=== PATIENT | female | born 1960 | race Caucasian/White ===

== ENCOUNTER → 2016-07-05 | Outpatient (CLI) | payer BC ==
--- NOTE | 2016-07-06 12:16 | MM ---
Reason for exam: screening (asymptomatic). Last mammogram was performed 1 year and 4 months ago. History: Patient is postmenopausal. Family history of breast cancer in aunt at age 52. Physical Findings: A clinical breast exam by your physician is recommended on an annual basis and results should be correlated with mammographic findings. MG Screening Mammo w CAD Bilateral CC, MLO, and XCCL view(s) were taken. Prior study comparison: February 20, 2015, bilateral MG screening mammo w CAD. March 22, 2013, bilateral digital screening mammo w/CAD. There are scattered fibroglandular densities. Finding: There are new coarse heterogeneous, segmental calcifications in the left breast. New finding since February 20, 2015 and March 22, 2013. ASSESSMENT: Probably benign, BI-RAD 3 RECOMMENDATION: Follow-up diagnostic mammogram of the left breast in 6 months.
== END | disposition home or self-care (01) ==
LOC: RADMAMWWP 14:45
PROVIDERS: ATTEND Family Medicine
DX: Z12.31 Encounter for screening mammogram for malignant neoplasm of breast (principal)

== ENCOUNTER → 2017-01-09 | Outpatient (CLI) | payer BC ==
--- NOTE | 2017-01-09 14:25 | MM ---
Reason for exam: follow-up at short interval from prior study. Last mammogram was performed 6 months ago. History: Patient is postmenopausal. Family history of breast cancer in aunt at age 52. Physical Findings: Nurse did not find any significant physical abnormalities on exam. MG 3D Diag Mammo W/Cad LT CC and MLO view(s) were taken of the left breast. Prior study comparison: July 05, 2016, bilateral MG screening mammo w CAD. February 20, 2015, bilateral MG screening mammo w CAD. There are scattered fibroglandular densities. No suspicious calcifications. These results were verbally communicated with the patient and result sheet given to the patient on 01/09/17. ASSESSMENT: Benign, BI-RAD 2 RECOMMENDATION: Return to routine screening mammogram schedule for both breasts. Back on schedule for June 2017.
== END | disposition home or self-care (01) ==
LOC: RADMAMWWP 13:44
PROVIDERS: ATTEND Family Medicine
DX: Z12.31 Encounter for screening mammogram for malignant neoplasm of breast (principal)
CPT/HCPCS: G0206; G0279

== ENCOUNTER 2017-05-12 10:08 | Emergency (ER) | payer BC ==
[2017-05-12] MEDS ORDERED: SODIUM CHLORIDE 0.9% 1,000 ML BAG ONE (14:52)
[2017-05-13 14:46] LABS: Basophils # (A) 0.1 k/uL (0-0.2); Basophils % (A) 1 %; Eosinophils # (A) 0.3 k/uL (0-0.7); Eosinophils % (A) 3 %; HCT 44.3 % (34.0-46.0); HGB 14.8 gm/dL (11.4-16.0); Lymphocytes # (A) 2.8 k/uL (1.0-4.8); Lymphocytes % (A) 30 %; MCH 29.8 pg (25.0-35.0); MCHC 33.5 g/dL (31.0-37.0); Mean Platelet Volume 6.1; Monocytes # (A) 0.5 k/uL (0-1.0); Monocytes % (A) 6 %; Neutrophils # (A) 5.4 k/uL (1.3-7.7); Neutrophils % (A) 58 %; Platelet Count 513 k/uL (150-450); RBC 4.98 m/uL (3.80-5.40); RDW 12.5 % (11.5-15.5); WBC 9.3 k/uL (3.8-10.6)
[2017-05-13 15:28] LABS: Partial Thromboplastin Time 22.3 sec (22.0-30.0); Prothrombin Time 10.1 sec (9.0-12.0)
[2017-05-13 15:50] LABS: Erythrocyte Sedimentation Rate 40 mm/hr (0-20)
[2017-05-13 17:01] LABS: ALT 84 U/L (9-52); AST 41 U/L (14-36); Albumin 4.1 g/dL (3.5-5.0); Alkaline Phosphatase 175 U/L (38-126); Anion Gap 12 mmol/L; Blood Urea Nitrogen 12 mg/dL (7-17); Carbon Dioxide 29 mmol/L (22-30); Chloride 99 mmol/L (98-107); Glucose 120 mg/dL (74-99); Potassium 4.5 mmol/L (3.5-5.1); Sodium 140 mmol/L (137-145); T4, Free (Free Thyroxine) 1.55 ng/dL (0.78-2.19); Total Bilirubin 0.6 mg/dL (0.2-1.3)
[2017-05-13 17:10] LABS: Creatine Kinase 23 U/L (30-135); Creatine Kinase MB <0.2 ng/mL (0.0-2.4); Troponin I <0.012 ng/mL (0.000-0.034)
== END 2017-05-12 13:45 | disposition home or self-care (01) ==
LOC: EC 10:08
DX: B34.9 Viral infection, unspecified (principal); R21 Rash and other nonspecific skin eruption
CPT/HCPCS: 36415; 80053; 82550; 82553; 84439; 84443; 84484; 85025; 85610; 85652; 85730; 93005; 96360; 99283

== ENCOUNTER 2017-06-01 23:32 | Emergency (ER) | payer BC ==
[2017-06-01 23:38] VITALS: RESP 18
[2017-06-01] MEDS ORDERED: HYDROmorphone 1 MG/ML 1 ML SYRINGE IVP STA (23:56)
[2017-06-01] MEDS ORDERED: ONDANSETRON 4 MG/2 ML VIAL IVP STA (23:56)
[2017-06-01] MEDS ORDERED: SODIUM CHLORIDE 0.9% 1,000 ML IV STA (23:56)
--- NOTE | 2017-06-02 00:33 | ED ---
Abdominal Pain HPI - General Chief Complaint: Abdominal Pain Stated Complaint: R Flank Pain Time Seen by Provider: 06/01/17 23:49 Source: patient, RN notes reviewed Mode of arrival: ambulatory Limitations: no limitations - History of Present Illness Initial Comments: Patient 56-year-old female who presents emergency room today with a chief complaint of right-sided flank pain that started approximately 6 PM. She has mid to a sharp type pain that seems to be increasing. She states she's never had similar symptoms in the past. Does not that she began feeling nauseated due to the pain. Currently rates it a /10. States there is some radiation around to the front of the abdomen. Denies any other complaints or symptoms. Patient denies any recent fever, chills, shortness of breath, chest pain, numbness or tingling, dysuria or hematuria, constipation or diarrhea, headaches or visual changes, or any other complaints. - Related Data Home Medications Medication Instructions Recorded Confirmed Lisinopril-Hctz 10-12.5 mg 1 tab PO DAILY 05/13/17 06/01/17 [Zestoretic 10-12.5] Ranitidine HCl [Zantac] 300 mg PO HS 05/13/17 06/01/17 Previous Rx's Medication Instructions Recorded Ibuprofen [Motrin] 600 mg PO Q6HR PRN #40 day 06/02/17 Allergies Allergy/AdvReac Type Severity Reaction Status Date / Time No Known Allergies Allergy Unverified 06/01/17 23:33 Review of Systems ROS Statement: Those systems with pertinent positive or pertinent negative responses have been documented in the HPI. ROS Other: All systems not noted in ROS Statement are negative. Past Medical History Additional Past Medical History / Comment(s): fatty liver History of Any Multi-Drug Resistant Organisms: None Reported Past Surgical History: Section, Cholecystectomy, Hysterectomy Past Psychological History: No Psychological Hx Reported Smoking Status: Never smoker Past Alcohol Use History: None Reported Past Drug Use History: None Reported General Exam - General Exam Comments Initial Comments: General: The patient is awake and alert, in no distress, and does not appear acutely ill. Eye: Pupils are equal, round and reactive to light, extra-ocular movements are intact. No nystagmus. There is normal conjunctiva bilaterally. No signs of icterus. Ears, nose, mouth and throat: There are moist mucous membranes and no oral lesions. Neck: The neck is supple, there is no tenderness or JVD. Cardiovascular: There is a regular rate and rhythm. No murmur, rub or gallop is appreciated. Respiratory: Lungs are clear to auscultation, respirations are non-labored, breath sounds are equal. No wheezes, stridor, rales, or rhonchi. Gastrointestinal: Soft, non-distended, non-tender abdomen without masses or organomegaly noted. There is no rebound or guarding present. No CVA tenderness. Bowel sounds are unremarkable. Musculoskeletal: Normal ROM, no tenderness. Strength 5/5. Sensation intact. Pulses equal bilaterally 2+. Neurological: A&O x 3. CN II-XII intact, There are no obvious motor or sensory deficits. Coordination appears grossly intact. Speech is normal. Skin: Skin is warm and dry and no rashes or lesions are noted. Psychiatric: Cooperative, appropriate mood & affect, normal judgment. Limitations: no limitations Course Vital Signs 06/01/17 23:34 Temperature 97.0 F L Pulse Rate 76 Respiratory 18 Rate Blood Pressure 148/83 O2 Sat by Pulse 96 Oximetry Medical Decision Making - Medical Decision Making Patient reexamined at this time shows no signs of distress. She is feeling much better here in the emergency room. Patient's labs been reviewed. Her liver enzymes much improved from previous visit to the emergency room. Patient' s CT of the abdomen and pelvis is unremarkable no evidence of a kidney stone. There is some possible scarring versus a tumor mass left lung base. This was discussed with the patient and she'll be given information follow-up plant cytologist for further evaluation. Advised patient that possibly of a kidney stone that did not show up on the CT versus mostly skeletal type pain and she does state that is worse with certain movements at times. This time she is comfortable be discharged home with anti-inflammatories for pain to follow-up plant cytologist and her family doctor. Advised to return to the emergency room symptoms increase or worsen. Patient states understanding and is in agreement. - Lab Data Result diagrams: 06/02/17 00:37 06/02/17 00:37 Lab Results 06/02/17 06/02/17 06/02/17 Range/Units 00:37 00:37 00:37 WBC 9.1 (3.8-10.6) k/uL RBC 4.62 (3.80-5.40) m/uL Hgb 14.1 (11.4-16.0) gm/dL Hct 40.1 (34.0-46.0) % MCV 86.9 (80.0-100.0) fL MCH 30.4 (25.0-35.0) pg MCHC 35.0 (31.0-37.0) g/dL RDW 13.7 (11.5-15.5) % Plt Count 262 (150-450) k/uL Neutrophils % 62 % Lymphocytes % 26 % Monocytes % 6 % Eosinophils % 5 % Basophils % 1 % Neutrophils # 5.6 (1.3-7.7) k/uL Lymphocytes # 2.3 (1.0-4.8) k/uL Monocytes # 0.5 (0-1.0) k/uL Eosinophils # 0.5 (0-0.7) k/uL Basophils # 0.1 (0-0.2) k/uL Sodium 141 (137-145) mmol/L Potassium 3.6 (3.5-5.1) mmol/L Chloride 102 (98-107) mmol/L Carbon Dioxide 28 (22-30) mmol/L Anion Gap 11 mmol/L BUN 9 (7-17) mg/dL Creatinine 0.80 (0.52-1.04) mg/dL Est GFR (MDRD) Af Amer >60 (>60 ml/min/1.73 sqM) Est GFR (MDRD) Non-Af >60 (>60 ml/min/1.73 sqM) Glucose 128 H (74-99) mg/dL Calcium 9.6 (8.4-10.2) mg/dL Total Bilirubin 0.6 (0.2-1.3) mg/dL AST 32 (14-36) U/L ALT 52 (9-52) U/L Alkaline Phosphatase 114 (38-126) U/L Total Protein 7.8 (6.3-8.2) g/dL Albumin 4.1 (3.5-5.0) g/dL Amylase 43 (30-110) U/L Lipase 66 (23-300) U/L Urine Color Light Yellow Urine Appearance Clear (Clear) Urine pH 6.5 (5.0-8.0) Ur Specific [place] 1.003 (1.001-1.035) Urine Protein Negative (Negative) Urine Glucose (UA) Negative (Negative) Urine Ketones Negative (Negative) Urine Blood Negative (Negative) Urine Nitrite Negative (Negative) Urine Bilirubin Negative (Negative) Urine Urobilinogen <2.0 (<2.0) mg/dL Ur Leukocyte Esterase Small H (Negative) Urine RBC 1 (0-5) /hpf Urine WBC 5 (0-5) /hpf Ur Squamous Epith Cells 3 (0-4) /hpf Urine Bacteria Rare H (None) /hpf Urine Mucus Rare H (None) /hpf Disposition Clinical Impression: Right flank pain, Mass of left lung Disposition: HOME SELF-CARE Condition: Good Instructions: Flank Pain (ED) Additional Instructions: Please follow-up with the family doctor with her scheduled appointment and also plant cytologist to have further evaluation of appearance of the left lower long off a CT today. Please return to emergency room symptoms increase or worsen or for any other concerns. Prescriptions: Ibuprofen [Motrin] 600 mg PO Q6HR PRN #40 day PRN Reason: Pain Referrals: Gail Delaney DO [Primary Care Provider] - 1-2 days Lori Shannon MD [STAFF PHYSICIAN] - 1-2 days Time of Disposition: 02:11
[2017-06-02 00:46] LABS: Basophils # (A) 0.1 k/uL (0-0.2); Basophils % (A) 1 %; Eosinophils # (A) 0.5 k/uL (0-0.7); Eosinophils % (A) 5 %; HCT 40.1 % (34.0-46.0); HGB 14.1 gm/dL (11.4-16.0); Lymphocytes # (A) 2.3 k/uL (1.0-4.8); Lymphocytes % (A) 26 %; MCH 30.4 pg (25.0-35.0); MCV 86.9 fL (80.0-100.0); Mean Platelet Volume 6.9; Monocytes # (A) 0.5 k/uL (0-1.0); Monocytes % (A) 6 %; Neutrophils # (A) 5.6 k/uL (1.3-7.7); Neutrophils % (A) 62 %; Platelet Count 262 k/uL (150-450); RBC 4.62 m/uL (3.80-5.40); RDW 13.7 % (11.5-15.5); WBC 9.1 k/uL (3.8-10.6)
[2017-06-02 00:54] LABS: Appearance,Urine Clear (Clear); Bacteria,Urine Rare /hpf; Bilirubin,Urine Negative (Negative); Blood,Urine Negative (Negative); Color,Urine Light Yellow; Glucose,Urine (UA) Negative (Negative); Ketones,Urine Negative (Negative); Leukocyte Esterase,Urine Small (Negative); Mucus,Urine Rare /hpf; Nitrite,Urine Negative (Negative); PH, Urine 6.5 (5.0-8.0); Protein,Urine Negative (Negative); RBC,Urine 1 /hpf (0-5); Specific Gravity,Urine 1.003 (1.001-1.035); Squamous Epithelial Cell,Urine 3 /hpf (0-4); Urobilinogen,Urine <2.0 mg/dL (<2.0); WBC,Urine 5 /hpf (0-5)
--- NOTE | 2017-06-02 00:55 | XR ---
EXAMINATION TYPE: XR KUB DATE OF EXAM: 06/02/2017 COMPARISON: NONE HISTORY: Flank pain TECHNIQUE: 2 views FINDINGS: There is no sign of intestinal obstruction or pneumoperitoneum. Fecal pattern is normal. Th ere are clips from cholecystectomy. Lung bases are clear of consolidation. There are no pathologic ca lcifications over the kidneys. IMPRESSION: Nonacute abdomen.
[2017-06-02 00:56] LABS: ALT 52 U/L (9-52); AST 32 U/L (14-36); Albumin 4.1 g/dL (3.5-5.0); Alkaline Phosphatase 114 U/L (38-126); Amylase 43 U/L (30-110); Anion Gap 11 mmol/L; Blood Urea Nitrogen 9 mg/dL (7-17); Calcium 9.6 mg/dL (8.4-10.2); Carbon Dioxide 28 mmol/L (22-30); Chloride 102 mmol/L (98-107); Glucose 128 mg/dL (74-99); Lipase 66 U/L (23-300); Potassium 3.6 mmol/L (3.5-5.1); Sodium 141 mmol/L (137-145); Total Bilirubin 0.6 mg/dL (0.2-1.3); Total Protein 7.8 g/dL (6.3-8.2)
--- NOTE | 2017-06-02 01:27 | CT ---
EXAMINATION TYPE: CT abdomen pelvis wo con DATE OF EXAM: 06/02/2017 COMPARISON: NONE HISTORY: Right Flank Pain CT DLP: 2132.40 mGycm Automated exposure control for dose reduction was used. TECHNIQUE: Helical acquisition of images was performed from the lung bases through the pelvis. FINDINGS: There is some linear density at the left posterior lung base. There is bulkiness of the visualized pu lmonary dominga. There is no pleural effusion. Liver appears normal. Bile ducts are not dilated. There are clips from cholecystectomy. There is no s ign of a pancreatic mass. Spleen appears normal. There is no adrenal mass. Kidneys have normal size and contour. There is no hydronephrosis. There is no retroperitoneal adenopathy. There is no ascites. There is no evidence of a bony destructive proces s. Appendix is not seen. There is no sign of appendicitis. IMPRESSION: THERE IS SOME BULKINESS OF THE PULMONARY DOMINGA AND MORE ON THE LEFT SIDE THAT COULD RELATE TO BRONCHIA L ADENOPATHY. THERE IS SOME SCARRING OR ATELECTASIS AT THE LEFT POSTERIOR LUNG BASE. THE POSSIBILITY OF TUMOR AT THE LEFT PULMONARY HILUM CANNOT BE EXCLUDED. I DO NOT SEE A CAUSE FOR RIGHT-SIDED FLANK PAIN. NO EVIDENCE OF RENAL MASS OR OBSTRUCTION.
[2017-06-02 02:48] VITALS: BP 132/80; PULSE 69; TEMP 96.8
== END 2017-06-02 02:44 | disposition home or self-care (01) ==
LOC: EC 23:32
DX: R91.8 Other nonspecific abnormal finding of lung field (principal); R10.9 Unspecified abdominal pain; R11.0 Nausea; Z79.899 Other long term (current) drug therapy; Z90.49 Acquired absence of other specified parts of digestive tract
CPT/HCPCS: 99284; 96374; 96375; 96361 ×2; 36415; 80053; 82150; 83690; 85025; 81001; 74018; 74176; J2405; J1170

== ENCOUNTER → 2017-06-20 | Outpatient (CLI) | payer BC ==
--- NOTE | 2017-06-20 15:04 | CT ---
EXAMINATION TYPE: CT chest w con DATE OF EXAM: 06/20/2017 COMPARISON: NONE HISTORY: Abn CT of abd pelvis CT DLP: 605.3 mGycm. Automated Exposure Control for Dose Reduction was Utilized. TECHNIQUE: CT scan of the thorax is performed following with IV Contrast, patient injected with 100 mL of Omnipaque 300. FINDINGS: LUNGS: Minimal lingular subsegmental atelectasis is present. Linear pleural parenchymal scarring with in the left lung base is also seen. The lungs are grossly clear, there is no concerning parenchymal m ass or nodule identified. There is no pleural effusion or pneumothorax seen. The tracheobronchial tree is patent. MEDIASTINUM: Mediastinal adenopathy is best appreciated on coronal series 6 image 69. Enlarged nodes are seen within the right paratracheal space, pretracheal space, precarinal space, subcarinal space, and left hilum. Conglomeration the left hilar lymph nodes measures 3.8 x 1.8 cm encasing the right lo wer lobe segmental bronchus. Subcarinal lymphadenopathy measures 1.4 cm in short axis. Precarinal francisco nopathy measures 1.4 cm in short axis, right paratracheal adenopathy measures 1.2 cm in short axis. S upraclavicular region is not entirely included in the [id number]. OTHER: There is partial visualization of the thyroid gland with and enlarged heterogenous left lobe. Gallbladder is surgically absent. There is partial visualization of the colon which appears decompres sed with mild mucosal thickening of the transverse colon and hepatic flexure. IMPRESSION: 1. Mediastinal and left hilar adenopathy without pulmonary mass. Considerations are for lymphoma, joe coidosis, or metastatic adenopathy. The thyroid gland is partially visualized but there is enlargemen t and heterogeneity of the left thyroid lobe and further evaluation with thyroid ultrasound is recomm ended. 2. Transverse and right hemicolon appear decompressed with mild wall thickening possibly related to r esolving colitis with the patient's complaint of right upper quadrant pain on the recent CT.
== END | disposition home or self-care (01) ==
LOC: RADCTMAIN 14:19
PROVIDERS: ATTEND Internal Medicine
DX: R59.0 Localized enlarged lymph nodes (principal)
CPT/HCPCS: 71260; Q9967

== ENCOUNTER → 2017-07-01 | Outpatient (CLI) | payer BC ==
--- NOTE | 2017-07-03 09:45 | PE ---
EXAMINATION TYPE: PET CT fusion skull to thigh DATE OF EXAM: 07/01/2017 COMPARISON: CT chest 06/20/2017 Prior PET/CT: None HISTORY: Solitary pulmonary nodule TECHNIQUE: Following the intravenous administration of 14.096 mCi of F-18 FDG, whole body images are performed from the skull base to the midthigh. Images are reviewed on the computer in the coronal, axial, and sagittal planes. Reconstructed rotating images are created on independent workstation and reviewed on the computer. A localization and attenuation correction CT is performed in conjunction with the PET scan. DLP: 588.02 mGycm SCAN: Initial Blood glucose: 115 mg/dL Average Mediastinum SUV: 1.57 Average Liver SUV: 2.94 FINDINGS: NECK: No abnormal uptake THORAX: There is mild uptake within mediastinal lymph nodes. The pretracheal space this has an SUV va lue of 4.0, image 70. A left peribronchial lymph node measures 5.21, image 72. There are enlarged med iastinal lymph nodes. However, it is the subcentimeter lymph nodes which have abnormal uptake. Uptak e within the enlarged subcarinal lymph node is moderate at 3.3 and the enlarged pretracheal and right peribronchial lymphadenopathy is not as intense at 1.8 and 1.9. There is a left infrahilar mass with maximum SUV of 8.63 compatible with neoplasm. This extends throu gh the infrahilar region into the left lower lung field. On image 87 this has an SUV value 5. ABDOMEN: Within the portal lymph node chain there is a area of marked increased radiotracer accumulat ion measuring 11.39 suspicious for metastatic lesion. PELVIS: No abnormal uptake OSSEOUS STRUCTURES: No abnormal uptake LOCALIZATION CT: Left lobe of thyroid is prominent displacing the trachea towards the right. No suspi cious uptake within the thyroid is identified. There are enlarged mediastinal lymph nodes. The infrah ilar mass appears to be intimately involved with the left lower lobe pulmonary vascular structures. U tilizing similar measurements the current mass is estimated to measure 4.1 cm AP by 2.3 cm transverse compared to the prior 3.8 x 1.8. Coronary artery calcification is present. COMPARISON: A lung mass is less well-defined but appears slightly larger than the comparison study . IMPRESSION: 1. Abnormal uptake within the left infrahilar mass compatible with neoplasm. 2. Subtle but suspicious uptake within mediastinal lymph nodes suspicious for metastatic disease. 3. Marked abnormal uptake within a lymph node within the portal lymph node chain suspicious for metas tasis below the diaphragm.
== END | disposition home or self-care (01) ==
LOC: RADPETMAIN 12:38
PROVIDERS: ATTEND Internal Medicine
DX: R91.8 Other nonspecific abnormal finding of lung field (principal); R93.8 Abnormal findings on diagnostic imaging of other specified body structures
CPT/HCPCS: 78815; A9552

== ENCOUNTER → 2017-10-17 | Outpatient (CLI) | payer BC ==
--- NOTE | 2017-10-17 15:06 | US ---
EXAMINATION TYPE: US thyroid st tissue head/neck DATE OF EXAM: 10/17/2017 COMPARISON: CT CLINICAL HISTORY: E06.9 Thyroiditis. GLAND SIZE: Right Lobe: 4.2 x 2.1 x 1.4 cm Overall Parenchyma: homogenous Left Lobe: 5.2 x 3.3 x 3.5 cm Overall Parenchyma: heterogeneous Isthmus Thickness: 0.5 cm NODULES RIGHT: # of nodules measured on right: 1 1. 1.7 x 1.5 x 1.2cm nodule at the mid pole with well-defined margins . This nodule is taller than wide and shows intranodular vascularity. No prior LEFT: # of nodules measured on left: 1 1. 4.4 x 3.0 x 3.8cm nodule at the mid pole with well-defined margins. This nodule is wider than t all and shows intranodular vascularity. No prior ISTHMUS: # of nodules measured in the isthmus: 0 Patient has large thick neck, technically difficult study. Bilateral neck scanned, no evidence of lymphadenopathy. IMPRESSION: Solid thyroid nodules with the glandular enlargement and heterogeneity may reflect multinodular goite r. The need to biopsy should be made on a clinical basis.
== END | disposition home or self-care (01) ==
LOC: RADUSMAIN 14:14
PROVIDERS: ATTEND Family Medicine
DX: E04.2 Nontoxic multinodular goiter (principal)
CPT/HCPCS: 76536

== ENCOUNTER → 2017-10-31 | Outpatient (CLI) | payer BC | END | disposition home or self-care (01) | LOC: LABWHC1 15:26 | PROVIDERS: ATTEND Internal Medicine Endocrinology, Diabetes & Metabolism | DX: E04.2 Nontoxic multinodular goiter (principal) | CPT/HCPCS: 36415; 84439; 84443; 84445; 84480 ==

== ENCOUNTER → 2017-11-07 | Outpatient (CLI) | payer BC ==
--- NOTE | 2017-11-07 23:36 | CT ---
EXAMINATION TYPE: CT chest w con DATE OF EXAM: 11/07/2017 COMPARISON: PET/CT 07/01/2017, and CT chest 06/20/2017 HISTORY: 57-year-old female Enlarged lymph nodes TECHNIQUE: Contiguous axial scanning of the chest after the administration of 100 mL of Isovue 300. Coronal/sagittal reconstructions performed. CT DLP: 787.5mGycm. Automatic exposure control utilized for a dose reduction. FINDINGS: Partially visualized large left thyroid nodule redemonstrated measuring at least 3.7 cm craniocaudal, coronal image 60 causing rightward tracheal shift. We note the absence of any hypermetabolism on the patient's 07/01/2012 PET/CT. Findings suggest multinodular goiter. Heart normal size without pericardial effusion. Aorta normal caliber with conventional arch vessel branching anatomy. Stable precarinal lymph node at 1.4 cm. Lymph node noted to be hypermetabolic on patient's PET/CT in the right paratracheal region measures 8 mm versus 1.2 cm, previously. Left tracheobronchial angle ly mph node which was also hypermetabolic on the patient's head CT measures 7 mm versus 1 cm, previously . Abnormal left sided peribronchial soft tissue remains in the infrahilar region measuring 3.5 x 2.1 cm versus 3.8 x 1.8 cm on 06/20/2017. This area was also noted to be hypermetabolic on the PET/CT. Some strandy scarring noted in the left midlung and inferior lingula. No pleural effusion. The hypermetabolic portacaval lymph node previously measuring 1.7 cm now measures 1.4 cm. Bones: No osseous destructive process. IMPRESSION: 1. A 1.4 cm precarinal lymph node is stable. Other prominent mediastinal lymph nodes (right paratrach eal and left tracheobronchial angle lymph nodes) noted to be hypermetabolic on PET/CT are smaller, fo r example, now measuring 8 mm versus 1.2 cm, previously. 2. Left infrahilar peribronchial soft tissue also noted to have been hypermetabolic on prior PET/CT i s relatively unchanged measuring 3.5 cm. In the absence of any oncologic treatment, consider sarcoido sis or indolent fungal/mycobacterial infections. Continued follow-up as indicated. 3. The portacaval lymph node noted to be hypermetabolic on prior PET/CT is slightly smaller at 1.4 cm versus 1.7 cm, previously. 4. Partially visualized multinodular goiter. This causes rightward tracheal deviation.
== END | disposition home or self-care (01) ==
LOC: RADCTMAIN 18:44
PROVIDERS: ATTEND Internal Medicine
DX: E04.2 Nontoxic multinodular goiter (principal); R59.0 Localized enlarged lymph nodes; M79.89 Other specified soft tissue disorders; J39.8 Other specified diseases of upper respiratory tract
CPT/HCPCS: 71260; Q9967

== ENCOUNTER 2017-11-08 09:45 | Day surgery (SDC) | payer BC ==
[2017-11-06 10:42] VITALS: BMI 47.7
[2017-11-08] MEDS ORDERED: LACTATED RINGERS 1,000 ML IV ONE (10:29)
[2017-11-08] MEDS ORDERED: LIDOCAINE 1% 20 ML VIAL (10MG/ML) FOR IV START INTRADERMA ONE (10:30)
[2017-11-08] MEDS ORDERED: MIDAZOLAM 2 MG/2 ML VIAL ONE (11:24)
[2017-11-08] MEDS ORDERED: fentaNYL (PF) 50 MCG/ML 2 ML AMP ONE (11:24)
[2017-11-08] MEDS ORDERED: GLYCOPYRROLATE 0.2 MG/ML 2 ML VIAL ONE (11:24)
[2017-11-08] MEDS ORDERED: SUCCINYLCHOLINE CHLORIDE 100 MG/5 ML SYR IV ONE (11:24)
[2017-11-08] MEDS ORDERED: PROPOFOL 10 MG/ML 20 ML VIAL IV ONE (11:24)
[2017-11-08] MEDS ORDERED: LIDOCAINE 1% INJ 10MG/ML (20 ML MDV) ONE (11:24)
[2017-11-08 12:19] VITALS: TEMP 97.1
[2017-11-08 12:44] VITALS: RESP 18
--- NOTE | 2017-11-08 13:17 | XR ---
EXAMINATION TYPE: XR chest 1V portable DATE OF EXAM: 11/08/2017 COMPARISON: 08/10/2013, CT chest 11/07/2017 INDICATION: Post bronchoscopy TECHNIQUE: Single frontal view of the chest is obtained. FINDINGS: The heart size is normal. The pulmonary vasculature is normal. There is a rounded opacity within the right midlung measuring 4.7 cm. This appears new from the CT ex amination No pneumothorax is evident. IMPRESSION: 1. Right perihilar mass or infiltrate. 2. No pneumothorax post bronchoscopy.
[2017-11-08 13:32] VITALS: BP 133/82; PULSE 67
--- NOTE | 2017-11-08 14:03 | P.PCN ---
Date of Procedure: 11/08/17 Preoperative Diagnosis: Lymphadenopathy/mediastinal, rule out sarcoidosis Postoperative Diagnosis: Mediastinal lymphadenopathy, rule out sarcoidosis Procedure(s) Performed: flexible bronchoscopy Transbronchial needle aspirate of a right paratracheal lymph node Transbronchial biopsy of the right lung Bronchioloalveolar lavage of the right middle lobe Anesthesia: ISMA Surgeon: Kumar Quezada Estimated Blood Loss (ml): 0 Pathology: other Condition: stable Disposition: same day Operative Findings: This procedure was done and operating room. The patient was intubated in the usual fashion by PER ASSESSMENT NURSE. The patient was induced by Diprivan and subsequently she was intubated by #8 orotracheal tube. The patient was oxygenated adequately ventilated. After was essentially orotracheal tube and as the patient was being oxygenated and ventilated, the flexible bronchoscope was advanced with orotracheal tube with was advanced into the lower trachea. The tip of the ET tube was seen around 2 cm above the rose. A careful airway inspection was done. The visualized airways included distal trachea, bilateral mainstem bronchi, right upper lobe bronchus, right middle lobe bronchus, right lower lobe bronchus, left upper lobe bronchus, left lower lobe bronchus lungs very segments and subsegments. All of these airways were patent and within normal limits. Following this, the bronchoscope was moved to the distal trachea and utilizing a 21-gauge histology 1 needle, transbronchial needle aspirate of the right paratracheal lymph node was done and a total of 3 passes was obtained. Following that, transbronchial biopsies of the right lung was done and this involved the right middle lobe and the right lower lobe. Total of 6- 7 transbronchial biopsies were obtained without any complications and no bleeding was encountered. The patient following that had a right middle lobe was LAVAGED. THE BRONCHOSCOPE WAS WEDGED IN THE lateral SEGMENT OF THE RIGHT LOWER LOBE AND A TOTAL OF 80 ML OF FLUID WAS INFUSED AND 40 ML WAS ASPIRATED. NO BEDSIDE It IS OR BLEEDING. THE PATIENT TOLERATED THE PROCEDURE WITHOUT ANY COMPLICATIONS. BRONCHOSCOPE WAS REMOVED AND FOLLOWING THAT THE PATIENT WAS EXTUBATED AND MOVED TO RECOVERY IN STABLE CONDITION. A chest x-ray at the end of the procedure was done and it showed no evidence of any pneumothorax. The patient was discharged home to be followed up in our office for further discussions.
--- NOTE | 2017-11-08 14:14 | FL ---
Fluoroscopy INDICATION: Pain FINDINGS: Fluoroscopy time: 12 seconds. Images obtained: 1. IMPRESSIONS: 1. Documentation of fluoroscopy.
[2017-11-08 22:46] LABS: Appearance,BF Hazy; Color,BF Red; Mononuclear WBC,Body Fluid 60 %; Nucleated Cells, Body Fluid 600 /uL; Polynuclear WBC,Body Fluid 38 %; RBC, Body Fluid 25500 /uL
== END 2017-11-08 14:06 | disposition home or self-care (01) ==
LOC: ORWHC2ENDO 09:45
PROVIDERS: ATTEND Internal Medicine Critical Care Medicine
DX: R59.0 Localized enlarged lymph nodes (principal); R91.8 Other nonspecific abnormal finding of lung field; K21.9 Gastro-esophageal reflux disease without esophagitis; R05 Cough; I10 Essential (primary) hypertension; E66.01 Morbid (severe) obesity due to excess calories; Z68.42 Body mass index [BMI] 45.0-49.9, adult; Z87.01 Personal history of pneumonia (recurrent); Z79.899 Other long term (current) drug therapy
CPT/HCPCS: 87798 ×3; 87496; 87498; 87529; 88108; 88305; 89050; 88342; 87252; 87502; 87634; 88341; 87070; 87205; 87116; 87102; 87206; 71045; 31628; 31629; 31624; J2250; J2001; J3010; J0330; J2704; 87075

== ENCOUNTER → 2017-12-15 | Outpatient (CLI) | payer BC ==
[2017-12-15 15:15] LABS: T4, Free (Free Thyroxine) 0.92 ng/dL (0.78-2.19)
[2017-12-15 19:14] LABS: Thyroid Peroxidase Antibodies 37.5 U/mL (0.0-60.0)
== END | disposition home or self-care (01) ==
LOC: LABWHC1 14:07
PROVIDERS: ATTEND Internal Medicine Endocrinology, Diabetes & Metabolism
DX: R94.6 Abnormal results of thyroid function studies (principal)
CPT/HCPCS: 36415; 84439; 84443; 84480; 86376

== ENCOUNTER → 2018-04-11 | Outpatient (CLI) | payer BC ==
--- NOTE | 2018-04-11 17:20 | CT ---
EXAMINATION TYPE: CT chest w con DATE OF EXAM: 04/11/2018 COMPARISON: 11/07/2017 HISTORY: f/u nodules CT DLP: 873 mGycm, Automated exposure control for dose reduction was used. CONTRAST: Performed injected with 100 mL of Isovue 300. TECHNIQUE: Axial images were obtained at 5 mm thick sections. Reconstructed images are reviewed on [employer] computer in the coronal plane. FINDINGS: Left lobe thyroid is enlarged and heterogenous measuring 3.6 cm in transverse dimension. Th is was present previously but has enlarged over. No suspicious lung nodules or focal infiltrates are present. There is some soft tissue density adjace nt to the vascular structures infrahilar region. This currently measures 11.2 x 3.5 cm which is small er than the comparison. There is an enlarged pretracheal lymph node measuring 1.3 cm. Series 3 image 18. The ascending aorta diameter at the level of the main pulmonary artery is 3.3 cm. The main pulmonary artery diameter at the bifurcation is 2.8 cm. Mild coronary artery calcifications present. Limited CT sections are obtained through the upper abdomen. Abdomen is essentially unremarkable. IMPRESSIONS: 1. Left lobe thyroid is increasing in size from comparison. 2. Stable enlarged pretracheal lymphadenopathy. 3. Diminished size of the left infrahilar soft tissue area. 4. Continued monitoring is recommended.
== END | disposition home or self-care (01) ==
LOC: RADCTMAIN 14:49
PROVIDERS: ATTEND Internal Medicine
DX: R59.0 Localized enlarged lymph nodes (principal); E04.1 Nontoxic single thyroid nodule
CPT/HCPCS: 71260; Q9967

== ENCOUNTER → 2018-08-02 | Outpatient (CLI) | payer BC ==
[2018-08-02 18:07] LABS: T4, Free (Free Thyroxine) 1.1 ng/dL (0.80-1.80)
== END | disposition home or self-care (01) ==
LOC: LABWHC1 14:20
PROVIDERS: ATTEND Internal Medicine Endocrinology, Diabetes & Metabolism
DX: E04.2 Nontoxic multinodular goiter (principal)
CPT/HCPCS: 36415; 84439; 84443

== ENCOUNTER → 2018-10-10 | Outpatient (CLI) | payer OTHER ==
[2018-10-10 16:47] LABS: T4, Free (Free Thyroxine) 1.16 ng/dL (0.78-2.19)
--- NOTE | 2018-10-11 07:10 | US ---
EXAMINATION TYPE: US thyroid st tissue head/neck DATE OF EXAM: 10/10/2018 COMPARISON: US 2018 CLINICAL HISTORY: E03.8 Hypothyroid,. Hypothyroidism. Pt on synthroid. Hx biopsy left lobe thyroid. GLAND SIZE: Right Lobe: 5.4 x 1.9 x 1.8 cm Overall Parenchyma: Homogeneous Left Lobe: 6.0 x 3.6 x 3.4 cm Overall Parenchyma: heterogeneous Isthmus Thickness: 0.29 cm NODULES RIGHT: # of nodules measured on right: 1 1. 1.8 X 1.4 x 1.5 cm hypoechoic solid nodule at the mid pole with well-defined margins. This nodu le is wider than tall and shows intranodular vascularity. Prior size: 1.7 x 1.5 x 1.2 cm LEFT: # of nodules measured on left: 1 1. 4.5 X 3.3 x 2.7 cm heterogeneous solid nodule at the mid pole with well-defined margins. This n odule is wider than tall and shows intranodular vascularity. Prior size: 4.4 x 3.0 x 3.8 cm ISTHMUS: # of nodules measured in the isthmus: 0 IMPRESSION: Heterogenous enlarged thyroid gland with bilateral thyroid nodules, dominant on the left measuring up to 4.5 cm although stable. This is stated to be previously biopsied. Right thyroid nodules also maria dolores lar in size.
== END | disposition home or self-care (01) ==
LOC: RADUSWWP 15:44
PROVIDERS: ATTEND Internal Medicine Endocrinology, Diabetes & Metabolism
DX: E04.2 Nontoxic multinodular goiter (principal)
CPT/HCPCS: 36415; 76536; 84439; 84443

== ENCOUNTER → 2018-12-07 | Outpatient (CLI) | payer OTHER ==
[2018-12-07 18:17] LABS: T4, Free (Free Thyroxine) 1.2 ng/dL (0.80-1.80)
== END | disposition home or self-care (01) ==
LOC: LABWHC1 13:45
PROVIDERS: ATTEND Internal Medicine Endocrinology, Diabetes & Metabolism
DX: E04.2 Nontoxic multinodular goiter (principal)
CPT/HCPCS: 36415; 84439; 84443

== ENCOUNTER → 2019-01-25 | Outpatient (CLI) | payer OTHER ==
[2019-01-25 18:57] LABS: T4, Free (Free Thyroxine) 1.1 ng/dL (0.80-1.80)
== END | disposition home or self-care (01) ==
LOC: LABWHC1 14:11
PROVIDERS: ATTEND Internal Medicine Endocrinology, Diabetes & Metabolism
DX: E04.2 Nontoxic multinodular goiter (principal)
CPT/HCPCS: 36415; 84439; 84443

== ENCOUNTER → 2019-03-02 | Outpatient (CLI) | payer OTHER ==
--- NOTE | 2019-03-02 17:19 | CT ---
EXAMINATION TYPE: CT chest w con DATE OF EXAM: 03/02/2019 COMPARISON: 04/11/2018 HISTORY: Follow-up to previous abnormal exam lung pineda CT DLP: 574.90 mGycm Automated exposure control for dose reduction was used. CONTRAST: CT scan of the chest is performed with IV Contrast, patient injected with 100 mL of Isovue 300. FINDINGS: LUNGS: Subsegmental changes are seen involving the lungs. No pleural effusion or pneumothorax. No foc al pneumonia. No overt failure. MEDIASTINUM: Left hilar soft tissue lymphadenopathy is stable measuring 1.2 x 3.5 cm. Adenopathy in t he pretracheal space with a short axis measurement of 1.4 cm is stable. The ascending aorta diameter at the level of the main pulmonary artery is 3.3 cm. The main pulmonary artery diameter at the bifurc ation is 2.8 cm. Mild coronary artery calcifications present. OTHER: Bilateral thyroid nodules are seen with the largest noted on the left measuring 3.8 cm. Postc holecystectomy changes are noted. Upper atrophic changes of the vertebral column. IMPRESSION: 1. Stable mediastinal and left hilar pathologic lymphadenopathy. 2. Stable bilateral thyroid nodules. 3. Subsegmental areas of consolidation with the lungs which atelectasis is favored over pneumonitis c orrelate clinically.
== END | disposition home or self-care (01) ==
LOC: RADCTMAIN 10:52
PROVIDERS: ATTEND Internal Medicine
DX: J98.11 Atelectasis (principal); E04.1 Nontoxic single thyroid nodule; R59.0 Localized enlarged lymph nodes; J18.9 Pneumonia, unspecified organism
CPT/HCPCS: 71260; Q9967

== ENCOUNTER → 2019-12-13 | Outpatient (CLI) | payer OTHER ==
--- NOTE | 2019-12-13 18:10 | CT ---
EXAMINATION TYPE: CT chest w con DATE OF EXAM: 12/13/2019 COMPARISON: CT chest 03/02/2019 HISTORY: Follow up for hilar lymphadenopathy. CT DLP: 629 mGycm Automated exposure control for dose reduction was used. CONTRAST: CT scan of the chest is performed with IV Contrast, patient injected with 100ml mL of Isovue 300. FINDINGS: LUNGS: The lungs demonstrate bilateral atelectasis. There is no concerning parenchymal mass or nodule identified. There is no pleural effusion or pneumothorax seen. The tracheobronchial tree is patent . MEDIASTINUM: There is decrease in size of mediastinal lymph nodes. Largest precarinal lymph node delbert uring 12 mm is unchanged. There is decreased size of left hilar adenopathy, with largest node measuri ng up to 1.0 cm, previously 1.3 cm on February 2019 comparison. No cardiomegaly or pericardial effusio n. Calcified coronary artery disease. No thoracic aortic aneurysm. OTHER: Normal adrenal glands. Redemonstrated heterogenous asymmetrically enlarged left thyroid gland . IMPRESSION: 1. Mildly decreased size of mediastinal and left hilar lymphadenopathy versus 03/02/2019 CT comparis on. 2. Unchanged heterogenous nodular thyroid gland.
== END | disposition home or self-care (01) ==
LOC: RADCTMAIN 15:40
PROVIDERS: ATTEND Internal Medicine
DX: E04.2 Nontoxic multinodular goiter (principal); R59.0 Localized enlarged lymph nodes
CPT/HCPCS: 71260; Q9967

== ENCOUNTER → 2019-12-27 | Outpatient (CLI) | payer OTHER ==
[2019-12-27 18:59] LABS: T4, Free (Free Thyroxine) 1.2 ng/dL (0.80-1.80)
== END | disposition home or self-care (01) ==
LOC: LABWHC1 14:33
PROVIDERS: ATTEND Internal Medicine Endocrinology, Diabetes & Metabolism
DX: E04.2 Nontoxic multinodular goiter (principal)
CPT/HCPCS: 36415; 84439; 84443

== ENCOUNTER → 2020-01-21 | Outpatient (CLI) | payer OTHER ==
--- NOTE | 2020-01-22 08:17 | BD ---
EXAMINATION TYPE: Axial Bone Density DATE OF EXAM: 01/21/2020 COMPARISON: NONE CLINICAL HISTORY: Height: 64.7 IN Weight: 320 LBS FRAX RISK QUESTIONS: Secondary Osteoporosis: 3. Menopause before 45: TOTAL HYST AGE 40 RISK FACTORS HISTORY OF: Active: YES Postmenopausal woman: TOTAL HYST AGE 40 MEDICATIONS: Thyroid Medications: YES Which medication: Synthroid How Lon YEARS Additional Medications: SYNTHROID, BLOOD PRESSURE MEDS, ACID REFLUX MEDS EXAM MEASUREMENTS: Bone mineral densitometry was performed using the [employer]Gyr System. Bone mineral density as measured about the Lumbar spine is: ----- L1-L4(G/cm2): 1.313 T Score Values are as follows: ----- L2: 1.1 ----- L3: 1.3 ----- L4: 0.9 ----- L1-L4: 1.1 Bone mineral density BASELINE Bone mineral density about the R hip (g/cm2): 0.998 Bone mineral density about the L hip (g/cm2): 0.949 T Score values are as follows: -----R Neck: -0.3 -----L Neck: -0.6 -----R Total: 0.7 -----L Total: 1.0 Bone mineral density BASELINE IMPRESSION: No evidence for osteoporosis or osteopenia NOTE: T-SCORE=SD OF THE YOUNG ADULT MEAN.
--- NOTE | 2020-01-22 11:58 | MM ---
Reason for exam: screening (asymptomatic). Last mammogram was performed 3 years ago. History: Patient is postmenopausal. Family history of breast cancer in aunt at age 52. Physical Findings: A clinical breast exam by your physician is recommended on an annual basis and results should be correlated with mammographic findings. MG 3D Screening Mammo W/Cad Bilateral CC and MLO view(s) were taken. Prior study comparison: January 09, 2017, left breast MG 3d diag mammo w/cad LT. July 05, 2016, bilateral MG screening mammo w CAD. The breast tissue is almost entirely fat. No significant changes when compared with prior studies. ASSESSMENT: Benign, BI-RAD 2 RECOMMENDATION: Routine screening mammogram of both breasts in 1 year.
== END | disposition home or self-care (01) ==
LOC: RADMAMWWP 14:40
PROVIDERS: ATTEND Family Medicine
DX: Z12.31 Encounter for screening mammogram for malignant neoplasm of breast (principal); Z78.0 Asymptomatic menopausal state
CPT/HCPCS: 77063; 77067; 77080

== ENCOUNTER → 2020-07-16 | Outpatient (CLI) | payer BC | END | disposition home or self-care (01) | LOC: LABWHC1 15:25 | PROVIDERS: ATTEND Internal Medicine Endocrinology, Diabetes & Metabolism | DX: E03.8 Other specified hypothyroidism (principal); E04.2 Nontoxic multinodular goiter | CPT/HCPCS: 36415; 84443 ==

== ENCOUNTER → 2020-08-07 | Outpatient (CLI) | payer BC ==
--- NOTE | 2020-08-07 15:51 | US ---
EXAMINATION TYPE: US thyroid st tissue head/neck DATE OF EXAM: 08/07/2020 COMPARISON: US October 10, 2018 CLINICAL HISTORY: E04.2 nontoxic multinodular goiter. GLAND SIZE: Right Lobe: 4.5 x 1.6 x 1.8 cm Overall Parenchyma: homogenous Left Lobe: 5.8 x 3.1 x 2.8 cm Overall Parenchyma: heterogeneous Isthmus Thickness: 0.2 cm NODULES RIGHT: # of nodules measured on right: 1 1. 1.9 X 1.3 x 1.3 cm, lower lateral, solid or almost completely solid, hypoechoic nodule, which is wider than tall, with smooth margins, without echogenic foci. Prior size: 1.9 x 1.5 x 1.4 cm LEFT: # of nodules measured on left: 1 1. 4.9 X 2.9 x 3.5 cm, mid mid, solid or almost completely solid, hypoechoic nodule, which is wider than tall, with smooth margins, without echogenic foci. Prior size: 4.5 x 2.7 x 3.3 cm ISTHMUS: # of nodules measured in the isthmus: 0 Bilateral neck scanned, no evidence of lymphadenopathy. Overall stable findings from most recent ultrasound heterogeneous thyroid with asymmetric left-sided enlargement due to dominant left-sided nodule. IMPRESSION: As above. Sampling would BE advised despite stability if has not been sampled in the past . Correlate clinically.
== END ==
LOC: RADUSWWP 15:01
PROVIDERS: ATTEND Internal Medicine Endocrinology, Diabetes & Metabolism
DX: E04.2 Nontoxic multinodular goiter (principal)
CPT/HCPCS: 76536

== ENCOUNTER → 2021-02-01 | Outpatient (CLI) | payer BC | END | disposition home or self-care (01) | LOC: LABWHC1 14:17 | PROVIDERS: ATTEND Internal Medicine Endocrinology, Diabetes & Metabolism | DX: E03.8 Other specified hypothyroidism (principal) | CPT/HCPCS: 36415; 84443 ==

== ENCOUNTER → 2021-07-29 | Outpatient (CLI) | payer BC ==
[2021-07-29 19:43] LABS: T4, Free (Free Thyroxine) 1.5 ng/dL (0.800-1.800)
== END | disposition home or self-care (01) ==
LOC: LABWHC1 13:44
PROVIDERS: ATTEND Internal Medicine Endocrinology, Diabetes & Metabolism
DX: E04.2 Nontoxic multinodular goiter (principal)
CPT/HCPCS: 36415; 84439; 84443

== ENCOUNTER → 2022-01-26 | Outpatient (CLI) | payer BC ==
--- NOTE | 2022-01-27 19:10 | BD ---
EXAMINATION TYPE: Axial Bone Density DATE OF EXAM: 01/26/2022 COMPARISON: NONE CLINICAL HISTORY: 61 year old Female. ICD-10 CODE: Z13.820 OSTEOPOROSIS SCREEN Height: 66 Weight: 323.2 FRAX RISK QUESTIONS: Alcohol (3 or more units per day): no Family History (Parent hip fracture): no Glucocorticoids (More than 3mos): no (Ex: prednisone, prednisolone, methylprednisolone, dexamethasone, and hydrocortisone). History of Fracture in Adulthood: no Secondary Osteoporosis: 1. Type 1 Diabetes: no 2. Hyperthyroidism: no 3. Menopause before 45: yes 4. Malnutrition: no 5. Chronic liver disease: no Rheumatoid Arthritis: no Current Tobacco Use: no RISK FACTORS HISTORY OF: Surgery to Spine/Hip(right/left)/Wrist (right/left): no Family History of Osteoporosis: no Active: yes Diet low in dairy products/other sources of calcium: no Postmenopausal woman: yes Lost more than 2 inches in height since high school: no MEDICATIONS: Thyroid Medications: synthroid How Lon years Additional History: EXAM MEASUREMENTS: Bone mineral densitometry was performed using the 2U System. Bone mineral density as measured about the Lumbar spine is: ----- L1-L4(G/cm2): 1.326 T Score Values are as follows: ----- L1: 0.5 ----- L2: 1.0 ----- L3: 1.9 ----- L4: 1.3 ----- L1-L4: 1.2 Bone mineral density : previous unavailable Bone mineral density about the R hip (g/cm2): 0.990 Bone mineral density about the L hip (g/cm2): 0.910 T Score values are as follows: -----R Neck: -0.3 -----L Neck: -0.9 -----R Total: 0.8 -----L Total: 0.8 Bone mineral density : previous unavailable FRAX%s: The graph provided illustrates a 9.9% chance for a major osteoporotic fx and a 0.5% chance fo r the hips probability for fx in 10 years time. IMPRESSION: Normal (Values between +1 and -1 indicate normal bone mass). Consider repeating this study in 5 year s or sooner if there is some new clinical indication. NOTE: T-SCORE=SD OF THE YOUNG ADULT MEAN.
--- NOTE | 2022-01-28 11:25 | MM ---
Reason for Exam: Screening (asymptomatic). Last mammogram was performed 2 year(s) and 0 month(s) ago. Patient History: Menarche at age 14. First Full-Term at age 19. Left ovary removed at age 41. Right ovary removed at age 41. Hysterectomy at age 41. Postmenopausal. Maternal aunt had breast cancer, age 52. Risk Values: Bri 5 year model risk: 1.0%. NCI Lifetime model risk: 4.7%. Prior Study Comparison: 07/05/2016 Bilateral Screening Mammogram, [facility]. 01/09/2017 Left Diagnostic Mammogram, [facility]. 01/21/2020 Bilateral Screening Mammogram, [facility]. Tissue Density: There are scattered fibroglandular densities. Findings: Analyzed By CAD. No discrete abnormality. Low axillary tail lymph nodes on both sides. Overall Assessment: Benign, BI-RAD 2 Management: Screening Mammogram of both breasts in 1 year. A clinical breast exam by your physician is recommended on an annual basis and results should be correlated with mammographic findings. Electronically signed and approved by: Dayron Brian M.D. Radiologist
== END | disposition home or self-care (01) ==
LOC: RADMAMWWP 14:59
PROVIDERS: ATTEND Family Medicine
DX: Z12.31 Encounter for screening mammogram for malignant neoplasm of breast (principal); Z13.820 Encounter for screening for osteoporosis; Z78.0 Asymptomatic menopausal state
CPT/HCPCS: 77063; 77067; 77080

== ENCOUNTER → 2022-02-03 | Outpatient (CLI) | payer BC ==
[2022-02-04 11:03] LABS: Clam IgE <0.10 kU/L; Codfish IgE <0.10 kU/L; Egg White IgE <0.10 kU/L; Peanut IgE <0.10 kU/L; Scallop IgE <0.10 kU/L; Shrimp IgE <0.10 kU/L; Soybean IgE <0.10 kU/L; Walnut IgE (Food) <0.10 kU/L
[2022-02-04 14:28] LABS: Alt. alternata IgE Class CLASS 0; Alternaria alternata IgE <0.10 kU/L (<0.10); Asperg. fumagatus IgE <0.10 kU/L (<0.10); Asperg. fumagatus IgE Class CLASS 0; Bermuda Grass IgE <0.10 kU/L (<0.10); Birch(Com.Silvr) IgE <0.10 kU/L (<0.10); Birch(Com.Silvr) IgE Class CLASS 0; Cat Epith & Dander IgE <0.10 kU/L (<0.10); Cat Epith & Dander IgE Class CLASS 0; Clad herbarum IgE <0.10 kU/L (<0.10); Clad herbarum IgE Class CLASS 0; Cockroach IgE 0.13 kU/L (<0.10); Cottonwood IgE <0.10 kU/L (<0.10); Dermato. Pteronyssinus Class CLASS 0/1; Dermato. Pteronyssinus IgE 0.11 kU/L (<0.10); Dermato. farinae IgE <0.10 kU/L (<0.10); Dermato. farinae IgE Class CLASS 0; Dog Dander IgE 0.17 kU/L (<0.10); Elm IgE <0.10 kU/L (<0.10); Maple (Box Elder) IgE <0.10 kU/L (<0.10); Maple (Box Elder) IgE Class CLASS 0; Mountain Cedar IgE <0.10 kU/L (<0.10); Mountain Cedar IgE Class CLASS 0; Mouse Urine IgE Class CLASS 0; Mouse Urine Proteins,IgE <0.10 kU/L (<0.10); Nettle IgE <0.10 kU/L (<0.10); Nettle IgE Class CLASS 0; Oak IgE <0.10 kU/L (<0.10); Penicillium chrysogenum IgE <0.10 kU/L (<0.10); Penicillium chrysogenum IgE Cl CLASS 0; Rough Marshelder IgE <0.10 kU/L (<0.10); Rough Marshelder IgE Class CLASS 0; Timothy Grass IgE <0.10 kU/L (<0.10); Timothy Grass IgE Class CLASS 0; White Ash IgE Class CLASS 0
== END | disposition home or self-care (01) ==
LOC: LABWHC1 14:08
PROVIDERS: ATTEND Internal Medicine Endocrinology, Diabetes & Metabolism
DX: E03.8 Other specified hypothyroidism (principal); L50.9 Urticaria, unspecified
CPT/HCPCS: 36415; 82785; 84443; 86003

== ENCOUNTER → 2022-08-05 | Outpatient (CLI) | payer BC ==
--- NOTE | 2022-08-05 15:00 | US ---
EXAMINATION TYPE: US thyroid st tissue head/neck DATE OF EXAM: 08/05/2022 COMPARISON: Thyroid ultrasound 08/07/2020 10/10/2018. CLINICAL HISTORY: E04.2 NONTOXIC MULTINOD GOITER. thyroid nodules. GLAND SIZE: Right Lobe: 4.7 x 1.7 x 1.4 cm Overall Parenchyma: heterogenous Left Lobe: 6.0 x 3.7 x 4.3 cm Overall Parenchyma: heterogeneous Isthmus Thickness: .2 cm NODULES RIGHT: # of nodules measured on right: 1 1. 1.6 X 1.4 x .8 cm, lower medial, solid or almost completely solid, hypoechoic nodule, which is w ider than tall, with smooth margins, without echogenic foci. TR 4. Prior size: 1.9 x 1.3 x 1.3 cm LEFT: # of nodules measured on left: 1 1. 5.1 X 3.0 x 4.1 cm, mid , solid or almost completely solid, hypoechoic nodule, which is wider th an tall, with smooth margins, without echogenic foci. TR 4. Prior size: 5.0 x 3.0 x 3.5 cm ISTHMUS: # of nodules measured in the isthmus: 0 Bilateral neck scanned, no evidence of lymphadenopathy. IMPRESSION: Stable bilateral thyroid TR 4 nodules. Fine-needle aspiration of both nodules is recommended if not p reviously performed despite stability.
== END | disposition home or self-care (01) ==
LOC: RADUSWWP 14:10
PROVIDERS: ATTEND Internal Medicine Endocrinology, Diabetes & Metabolism
DX: E04.2 Nontoxic multinodular goiter (principal)
CPT/HCPCS: 76536

== ENCOUNTER → 2022-11-17 | Outpatient (CLI) | payer BC | END | disposition home or self-care (01) | LOC: LABWHC1 13:48 | PROVIDERS: ATTEND Internal Medicine Endocrinology, Diabetes & Metabolism | DX: E03.8 Other specified hypothyroidism (principal) | CPT/HCPCS: 36415; 84443 ==

== ENCOUNTER → 2023-02-03 | Outpatient (CLI) | payer BC | END | disposition home or self-care (01) | LOC: LABWHC1 14:15 | PROVIDERS: ATTEND Internal Medicine Endocrinology, Diabetes & Metabolism | DX: C73 Malignant neoplasm of thyroid gland (principal) | CPT/HCPCS: 36415; 84432; 84443; 86800 ==

== ENCOUNTER → 2023-08-03 | Outpatient (CLI) | payer BC | END | disposition home or self-care (01) | LOC: LABWHC1 14:12 | PROVIDERS: ATTEND Internal Medicine Endocrinology, Diabetes & Metabolism | DX: C73 Malignant neoplasm of thyroid gland (principal) | CPT/HCPCS: 36415; 84432; 84443; 86800 ==

== ENCOUNTER → 2024-02-06 | Outpatient (CLI) | payer BC ==
--- NOTE | 2024-02-06 14:22 | US ---
EXAMINATION TYPE: US thyroid st tissue head/neck DATE OF EXAM: 02/06/2024 COMPARISON: NONE CLINICAL INDICATION: Female, 63 years old with history of C73 MALIGNANT NEOPLASM OF THYROID; bilatera l thyroidectomy 10/11. GLAND SIZE: Right Lobe: Surgically absent Left Lobe: Surgically absent Isthmus Thickness: Surgically absent NODULES RIGHT: # of nodules measured on right: 0 LEFT: # of nodules measured on left: 0 ISTHMUS: # of nodules measured in the isthmus: 0 Bilateral neck scanned, no evidence of lymphadenopathy. IMPRESSION: No residual or recurrent thyroid tissue within the postsurgical thyroid bed. 2017 ACR TI-RADS LEVEL: TR-RADS 1 - BENIGN: No FNA *Highest TI-RADS level nodule reported [facility], , 02/06/2024 2:19 PM
== END | disposition home or self-care (01) ==
LOC: RADUSWWP 13:38
PROVIDERS: ATTEND Internal Medicine Endocrinology, Diabetes & Metabolism
DX: C73 Malignant neoplasm of thyroid gland
CPT/HCPCS: 76536; 84432; 84443; 86800

== ENCOUNTER 2024-04-16 09:37 | Day surgery (SDC) | payer BC ==
[2024-04-12 13:35] VITALS: BMI 48.4
[~2024-04-16 09:37] MED LIST: LIDOCAINE 1% (10MG/ML) FOR IV START INTRADERMA PRN
[2024-04-16 10:07] VITALS: TEMP 98.8
[2024-04-16] MEDS: IV FLUID CONTINUATION 1,000 ML IV ONE (10:17)
[2024-04-16] MEDS: LACTATED RINGERS 1,000 ML IV SCH (10:28)
[2024-04-16] MEDS ORDERED: PROPOFOL 10 MG/ML 20 ML VIAL IV ONE (11:00)
[2024-04-16] MEDS ORDERED: LIDOCAINE 1% INJ 10MG/ML (20 ML MDV) ONE (11:00)
--- NOTE | 2024-04-16 11:03 | P.GSHP ---
History of Present Illness H&P Date: 04/16/24 Chief Complaint: Colon cancer screening 63-year-old female here for colonoscopy. Last colonoscopy over 10 years ago. Patient thinks she may have had polyps. No bowel complaints. No family history of colon cancer. Past Medical History Past Medical History: GERD/Reflux, Hypertension, Pneumonia Additional Past Medical History / Comment(s): freq diarrhea,scar tissue on lungs from [place] pneumonia in the past History of Any Multi-Drug Resistant Organisms: None Reported Past Surgical History: Section, Cholecystectomy, Hysterectomy Additional Past Surgical History / Comment(s): bronchoscopy,thyroidectomy Past Anesthesia/Blood Transfusion Reactions: No Reported Reaction Additional Past Anesthesia/Blood Transfusion Reaction / Comment(s): no blood transfusion complication Smoking Status: Never smoker - Past Family History Mother Family Medical History: No Reported History Medications and Allergies Home Medications Medication Instructions Recorded Confirmed Type Levothyroxine Sodium [Synthroid] 175 mcg PO QAM 04/12/24 04/12/24 History Losartan Potassium 50 mg PO DAILY@1300 04/12/24 04/12/24 History Allergies Allergy/AdvReac Type Severity Reaction Status Date / Time cat dander Allergy Rash/Hives Verified 04/12/24 13:39 dog dander Allergy Rash/Hives Verified 04/12/24 13:39 Surgical - Exam Vital Signs Temp Pulse Resp BP Pulse Ox 98.8 F 71 20 213/98 96 04/16/24 10:04 04/16/24 10:04 04/16/24 10:04 04/16/24 10:04 04/16/24 10:04 Physical exam: General: Well-developed, well-nourished HEENT: Normocephalic, sclerae nonicteric Abdomen: Nontender, nondistended Extremities: No edema Neuro: Alert and oriented Assessment and Plan (1) Colon cancer screening Narrative/Plan: Will proceed with colonoscopy at this time. Current Visit: Yes Status: Acute Code(s): Z12.11 - ENCOUNTER FOR SCREENING FOR MALIGNANT NEOPLASM OF COLON SNOMED Code(s): 783133934
--- NOTE | 2024-04-16 11:20 | P.PCN ---
Date of Procedure: 04/16/24 Procedure(s) Performed: PREOPERATIVE DIAGNOSIS: Colon cancer screening POSTOPERATIVE DIAGNOSIS: Sigmoid colon polyp, diverticulosis PROCEDURE: Colonoscopy with snare polypectomy ANESTHESIA: MAC SURGEON: Paddy Horton M.D. SPECIMENS: Sigmoid polyp ENDOSCOPIC PROCEDURE: The patient was placed on the endoscopy table in the left decubitus position. The Olympus colonoscope was inserted into the anus and passed under direct visualization to the base of the cecum. The appendiceal orifice was visualized. From that point the scope was slowly withdrawn inspecting all surfaces carefully. There were no neoplastic inflammatory or polypoid lesions throughout the cecum, ascending, transverse, and descending colon. In the sigmoid a small polyp was noted and removed using the snare with cautery technique. The remainder of the sigmoid and rectum was normal. There was mild diverticulosis seen. Digital rectal examination was normal. The patient was taken to the recovery room in stable condition per anesthesia guidelines. RECOMMENDATIONS: Await biopsy results. Will contact patient with timing of the next colonoscopy.
[2024-04-16 11:25] VITALS: RESP 16
[2024-04-16 11:51] VITALS: BP 163/81; PULSE 68
== END 2024-04-16 12:11 | disposition home or self-care (01) ==
LOC: ORWHC2ENDO 09:37
PROVIDERS: ATTEND Surgery
DX: Z12.11 Encounter for screening for malignant neoplasm of colon (principal); D12.5 Benign neoplasm of sigmoid colon; K57.30 Diverticulosis of large intestine without perforation or abscess without bleeding; I10 Essential (primary) hypertension; E89.0 Postprocedural hypothyroidism; K21.9 Gastro-esophageal reflux disease without esophagitis; Z79.890 Hormone replacement therapy; Z79.899 Other long term (current) drug therapy
CPT/HCPCS: 88305; 45385; J2003; J2704

== ENCOUNTER → 2024-04-30 | Outpatient (CLI) | payer BC ==
--- NOTE | 2024-05-04 23:39 | MM ---
Reason for Exam: Screening (asymptomatic). Last mammogram was performed 2 year(s) and 3 month(s) ago. Patient History: Menarche at age 14. First Full-Term at age 19. Left ovary removed at age 41. Right ovary removed at age 41. Hysterectomy at age 41. Postmenopausal. Maternal aunt had breast cancer, age 52. Risk Values: Bri 5 year model risk: 1.0%. NCI Lifetime model risk: 4.4%. Prior Study Comparison: 01/09/2017 Left Diagnostic Mammogram, [facility]. 01/21/2020 Bilateral Screening Mammogram, [facility]. 01/26/2022 Bilateral MG 3D screening mammo w/cad, [facility]. Tissue Density: There are scattered areas of fibroglandular density. Findings: Analyzed By CAD. The pattern is symmetrical. Chronic nodularity is the bilateral breasts. No suspicious groups of microcalcifications, spiculated or lobular masses, architectural distortion or other secondary signs of malignancy are mammographically apparent. Overall Assessment: Benign, BI-RAD 2 Management: Screening Mammogram of both breasts in 1 year. A negative mammogram report should not preclude additional follow up of suspicious palpable abnormalities. Patient should continue monthly self breast exam. A clinical breast exam by your physician is recommended on an annual basis and results should be correlated with mammographic findings. Note on Bri scores and lifetime risk: 1. A Bri score greater than 3% is considered moderate risk. If this is the case, consider specialist referral to assess eligibility for a risk reducing agent. 2. If overall lifetime risk for the development of breast cancer is 20% or higher, the patient may qualify for future screening with alternating mammogram and breast MRI. [facility], , 05/04/2024 11:35 PM. Electronically signed and approved by: Vincent Denton D.O. Radiologis
== END | disposition home or self-care (01) ==
LOC: RADMAMWWP 15:34
PROVIDERS: ATTEND Family Medicine
DX: Z12.31 Encounter for screening mammogram for malignant neoplasm of breast (principal); Z90.722 Acquired absence of ovaries, bilateral; Z78.0 Asymptomatic menopausal state; Z80.3 Family history of malignant neoplasm of breast; R92.323 Mammographic fibroglandular density, bilateral breasts
CPT/HCPCS: 77063; 77067

== ENCOUNTER → 2024-07-30 | Outpatient (CLI) | payer BC | END | disposition home or self-care (01) | LOC: LABWHC1 13:43 | PROVIDERS: ATTEND Internal Medicine Endocrinology, Diabetes & Metabolism | DX: C73 Malignant neoplasm of thyroid gland (principal) | CPT/HCPCS: 36415; 84432; 84443; 86800 ==